=== PATIENT | female | born 1990 | race African-American/Black ===

== ENCOUNTER 2023-07-18 11:21 | Inpatient (IN) | payer MEDICAID, OTHER ==
[~2023-07-18] VITALS: Ht 165.1 cm; Wt 106.1 kg
[2023-07-18] MEDS ORDERED: ALBUTEROL (11:25)
[2023-07-18] MEDS ORDERED: ALBUTEROL (0.083%) 2.5MG/3ML NEB HHN STA ×3 (11:37→12:29)
[2023-07-18] MEDS ORDERED: IPRATROPIUM BROMIDE (0.02%) 0.5MG/2.5ML NEB HHN STA ×3 (11:37→12:29)
[2023-07-18] MEDS ORDERED: METHYLPREDNISOLONE SOD SUCC 125MG/2ML (ACT-O-VIAL) IV STA (11:37)
[2023-07-18 12:19] VITALS: PULSE 120; RESP 20; O2SAT 95
[2023-07-18] MEDS ORDERED: MAGNESIUM 2 G PREMIX 50 ML IV ONE (12:30)
[2023-07-18 12:58] VITALS: PULSE 119; RESP 20; O2SAT 95
[2023-07-18 13:10] LABS: BASOPHILS % 0.3 % (0.0-2.0); EOSINOPHILS % 3.8 % (0.0-5.0); HEMATOCRIT. 39.6 % (36.0-48.0); HEMOGLOBIN. 13.6 g/dL (12.0-16.0); LYMPHOCYTES % 10.5 % (20.0-50.0); MEAN CORPUSCULAR HEMOGLOBIN 28.2 pg (28.0-32.0); MEAN CORPUSCULAR HGB CONC 34.4 g/dL (31.0-37.0); MEAN CORPUSCULAR VOLUME 81.8 fL (81.0-99.0); MEAN PLATELET VOLUME 10.2 fl (7.4-10.4); MONOCYTES % 3.7 % (2.0-8.0); NEUTROPHILS % 81.7 % (40.0-76.0); PLATELET 203 x1000/uL (130-400); RED BLOOD CELL COUNT 4.84 mill/uL (4.2-5.4); WHITE BLOOD COUNT 9.4 x1000/uL (4.5-11.0)
[2023-07-18 13:13] LABS: HCG SCREEN NEGATIVE
[2023-07-18 13:20] LABS: ALANINE AMINOTRANSFERASE 16 IU/L (10-49); ALBUMIN 4.9 g/dL (3.2-4.8); ASPARTATE AMINOTRANSFERASE 39 IU/L (<34); BILIRUBIN TOTAL 1.4 mg/dL (0.1-1.0); CALCIUM 9.5 mg/dL (8.7-10.4); CARBON DIOXIDE 24 mEq/L (21-32); CHLORIDE 108 mEq/L (98-107); CREATININE 0.7 mg/dL (0.6-1.0); GLUCOSE 109 mg/dL (70-105); POTASSIUM 5.2 mEq/L (3.5-5.1); PROTEIN TOTAL 7.8 g/dL (6.0-8.3); SODIUM 140 mEq/L (136-145); UREA NITROGEN BLOOD 10 mg/dL (9-23)
[2023-07-18 13:25] LABS: TROPONIN I HIGH SENSITIVITY < 4 ng/L (3.0-34)
[2023-07-18] MEDS ORDERED: METHYLPREDNISOLONE SOD SUCC 125MG/2ML (ACT-O-VIAL) IV NR (15:00)
[2023-07-18] MEDS ORDERED: MAGNESIUM 2 G PREMIX 50 ML IV NR (15:00)
[2023-07-18] MEDS: LORAZEPAM 4MG/ML VIAL IV PRN (18:12)
[2023-07-18 23:15] VITALS: BP 125/88; PULSE 82; RESP 16; TEMP 98.3
[2023-07-19] VITALS (10 sets, daily range): BP systolic 115–147; BP diastolic 56–98; PULSE 16–99; RESP 16–24; TEMP 98.2–98.8; O2SAT 99–100
[2023-07-19] MEDS ORDERED: ONDANSETRON HCL 4MG/2ML INJ IV PRN (00:45)
[2023-07-19] MEDS ORDERED: IPRATROPIUM/ALBUTEROL 0.5-3(2.5)MG/3ML NEB HHN PRN (00:45)
[2023-07-19] MEDS ORDERED: ACETAMINOPHEN 325MG TABLET PO PRN (00:45)
[2023-07-19] MEDS: PANTOPRAZOLE 40MG DR TABLET PO SCH (06:33)
[2023-07-19] MEDS: METHYLPREDNISOLONE SOD SUCC 40MG/ML (ACT-O-VIAL) IV SCH ×4 (06:34→23:56)
[2023-07-19 06:53] LABS: BASOPHILS % 0.2 % (0.0-2.0); HEMOGLOBIN. 13.5 g/dL (12.0-16.0); LYMPHOCYTES % 11.9 % (20.0-50.0); MEAN CORPUSCULAR HEMOGLOBIN 28.1 pg (28.0-32.0); MEAN CORPUSCULAR HGB CONC 34.5 g/dL (31.0-37.0); MEAN CORPUSCULAR VOLUME 81.5 fL (81.0-99.0); MEAN PLATELET VOLUME 9.9 fl (7.4-10.4); MONOCYTES % 5.2 % (2.0-8.0); NEUTROPHILS % 82.7 % (40.0-76.0); PLATELET 205 x1000/uL (130-400); RED BLOOD CELL COUNT 4.78 mill/uL (4.2-5.4); RED CELL DISTRIBUTION WIDTH 15.6 % (11.6-14.6); WHITE BLOOD COUNT 8.2 x1000/uL (4.5-11.0)
[2023-07-19 07:28] LABS: CALCIUM 9.8 mg/dL (8.7-10.4); CARBON DIOXIDE 22 mEq/L (21-32); CHLORIDE 108 mEq/L (98-107); CREATININE 0.6 mg/dL (0.6-1.0); GLUCOSE 95 mg/dL (70-105); POTASSIUM 4.1 mEq/L (3.5-5.1); SODIUM 140 mEq/L (136-145); UREA NITROGEN BLOOD 10 mg/dL (9-23)
[2023-07-19] MEDS: LORAZEPAM 4MG/ML VIAL IV PRN (09:54)
[2023-07-19] MEDS: BUDESONIDE 0.5MG/2ML NEB HHN SCH ×2 (11:37→20:26)
[2023-07-19] MEDS: IPRATROPIUM/ALBUTEROL 0.5-3(2.5)MG/3ML NEB HHN SCH ×3 (11:38→20:26)
[2023-07-19 15:23] LABS: *AMPHETAMINES SCREEN URINE NEGATIVE (NEGATIVE); *BARBITURATES SCREEN URINE NEGATIVE (NEGATIVE); *BENZODIAZEPINES SCREEN URINE NEGATIVE (NEGATIVE); *COCAINE SCREEN URINE NEGATIVE (NEGATIVE); CANNABINOID URINE SCREEN PRESUMPTIVE POSITIVE (NEGATIVE); ECSTASY MDMA SCREEN URINE NEGATIVE (NEGATIVE); METHADONE URINE SCREEN Neg (NEGATIVE); OPIATES URINE SCREEN NEGATIVE (NEGATIVE); PHENCYCLIDINE URINE SCREEN NEGATIVE (NEGATIVE)
[2023-07-19] MEDS: LORAZEPAM 1MG TABLET PO PRN (16:53)
[2023-07-19] MEDS: MONTELUKAST SODIUM 10MG TABLET PO SCH (16:53)
[2023-07-19 16:56] LABS: HEPATITIS C AB NON REACTIVE (Neg) (Negative)
[2023-07-19 22:41] LABS: HEPATITIS B SURFACE ANTIGEN NEGATIVE (Negative)
[2023-07-20] VITALS (11 sets, daily range): BP systolic 99–137; BP diastolic 69–93; PULSE 61–98; RESP 16–23; TEMP 97.1–98.6; O2SAT 95–99
[2023-07-20] MEDS: IPRATROPIUM/ALBUTEROL 0.5-3(2.5)MG/3ML NEB HHN SCH ×6 (00:31→21:26)
[2023-07-20] MEDS: METHYLPREDNISOLONE SOD SUCC 40MG/ML (ACT-O-VIAL) IV SCH ×3 (06:13→17:56)
[2023-07-20] MEDS: PANTOPRAZOLE 40MG DR TABLET PO SCH (06:14)
[2023-07-20] MEDS: BUDESONIDE 0.5MG/2ML NEB HHN SCH ×2 (07:40→21:26)
[2023-07-20] MEDS: LORAZEPAM 1MG TABLET PO PRN ×2 (09:36→18:08)
[2023-07-20] MEDS ORDERED: NALOXONE HCL 0.4MG/ML VIAL IV PRN (11:45)
[2023-07-20] MEDS: MONTELUKAST SODIUM 10MG TABLET PO SCH (17:56)
[2023-07-21] VITALS (12 sets, daily range): BP systolic 108–134; BP diastolic 67–87; PULSE 61–118; RESP 14–23; TEMP 97.8–98.6; O2SAT 97–99
[2023-07-21] MEDS: METHYLPREDNISOLONE SOD SUCC 40MG/ML (ACT-O-VIAL) IV SCH ×4 (01:12→17:27)
[2023-07-21] MEDS: IPRATROPIUM/ALBUTEROL 0.5-3(2.5)MG/3ML NEB HHN SCH ×5 (02:03→21:16)
[2023-07-21] MEDS: LORAZEPAM 1MG TABLET PO PRN ×3 (06:17→18:28)
[2023-07-21] MEDS: BUDESONIDE 0.5MG/2ML NEB HHN SCH ×2 (08:23→21:16)
[2023-07-21] MEDS: FAMOTIDINE 20MG TABLET PO SCH ×2 (08:58→21:56)
[2023-07-21] MEDS: GUAIFENESIN 200MG 200 MG TABLET PO PRN (08:58)
[2023-07-21] MEDS: MONTELUKAST SODIUM 10MG TABLET PO SCH (17:27)
[2023-07-21] MEDS: HYDROCODONE/ACETAMINOPHEN 5/325MG TABLET PO PRN (21:57)
[2023-07-22] VITALS (11 sets, daily range): BP systolic 100–129; BP diastolic 73–95; PULSE 67–95; RESP 12–21; TEMP 97.4–98; O2SAT 96–98
[2023-07-22] MEDS: IPRATROPIUM/ALBUTEROL 0.5-3(2.5)MG/3ML NEB HHN SCH ×6 (00:04→22:19)
[2023-07-22] MEDS: METHYLPREDNISOLONE SOD SUCC 40MG/ML (ACT-O-VIAL) IV SCH ×4 (00:41→17:04)
[2023-07-22] MEDS: LORAZEPAM 1MG TABLET PO PRN ×2 (05:45→17:04)
[2023-07-22] MEDS: HYDROCODONE/ACETAMINOPHEN 5/325MG TABLET PO PRN (07:55)
[2023-07-22] MEDS: FAMOTIDINE 20MG TABLET PO SCH ×2 (07:55→20:58)
[2023-07-22] MEDS: BUDESONIDE 0.5MG/2ML NEB HHN SCH (08:25)
[2023-07-22] MEDS: GUAIFENESIN 200MG 200 MG TABLET PO PRN (09:15)
[2023-07-22] MEDS ORDERED: KETOROLAC 30MG/ML VIAL IV PRN (12:45)
[2023-07-23] VITALS (7 sets, daily range): BP systolic 115–151; BP diastolic 81–103; PULSE 62–89; RESP 17–20; TEMP 97.8–98.8; O2SAT 98
[2023-07-23] MEDS: METHYLPREDNISOLONE SOD SUCC 40MG/ML (ACT-O-VIAL) IV SCH ×3 (01:27→12:00)
[2023-07-23] MEDS: IPRATROPIUM/ALBUTEROL 0.5-3(2.5)MG/3ML NEB HHN SCH ×3 (02:06→11:10)
[2023-07-23] MEDS: FAMOTIDINE 20MG TABLET PO SCH (08:52)
[2023-07-23] MEDS: LORAZEPAM 1MG TABLET PO PRN (09:45)
[2023-07-23] MEDS ORDERED: ALBU18HF2 IH (10:29)
[2023-07-23] MEDS ORDERED: P20 MT (10:29)
[2023-07-23] MEDS ORDERED: FLUT1DIS3 INH (10:29)
== END 2023-07-23 14:07 | disposition home or self-care (01) | DRG 141 ==
LOC: ER 11:21 → EDBEDREQ 15:02 → MICUSO 17:54 → 3WST 22:59
PROVIDERS: ADMIT Internal Medicine; ATTEND Internal Medicine
DX: J45.901 Unspecified asthma with (acute) exacerbation (principal); J96.00 Acute respiratory failure, unspecified whether with hypoxia or hypercapnia; E66.01 Morbid (severe) obesity due to excess calories; F41.9 Anxiety disorder, unspecified; Z59.01 Sheltered homelessness; Z90.710 Acquired absence of both cervix and uterus; Z98.891 History of uterine scar from previous surgery; Z68.38 Body mass index [BMI] 38.0-38.9, adult
CPT/HCPCS: 36415; 71045; 80048; 80053; 80305; 83880; 84484; 84703; 85025; 85379; 86705; 87340; 93005; 94640; 99285; C1893; J1885; J2060; J2920; J2930; J3475; J7626